=== PATIENT | male | born 1950 | race Caucasian/White ===

== ENCOUNTER 2020-06-22 16:35 | Emergency (ER) | payer MEDICARE ==
[~2020-06-22] VITALS: Ht 177.8 cm; Wt 143.2 kg
[2020-06-22 17:03] VITALS: BP 158/90
== END 2020-06-22 18:32 | disposition home or self-care (01) ==
LOC: ER 16:35
DX: S61.212A Laceration without foreign body of right middle finger without damage to nail, initial encounter (principal); I25.10 Atherosclerotic heart disease of native coronary artery without angina pectoris; Z88.8 Allergy status to other drugs, medicaments and biological substances; X58.XXXA Exposure to other specified factors, initial encounter; Y93.89 Activity, other specified; Y92.89 Other specified places as the place of occurrence of the external cause; Y99.8 Other external cause status
CPT/HCPCS: 12002; 99282

== ENCOUNTER 2024-07-19 08:34 | Outpatient (CLI) | payer MEDICARE, OTHER ==
[~2024-07-19 08:34] MED LIST: iohexol 300mg/ml 100ml inj. ONE; iohexol 350MG/ML 100ml bottle IV ONE
[2024-07-19] MEDS ORDERED: iohexol 300mg/ml 100ml inj. ONE (09:15)
--- NOTE | 2024-07-19 11:25 | RADIOLOGY REPORT ---
Procedure: CT CT CHEST W/ IV CONTRAST Reason for study/Clinical History: PRESENCE OF AORTOCORONARY BYPASS GRAFT Comparison Study: None Exam Date: 07/19/2024 09:30 AM TECHNIQUE: Multidetector CT of the chest was performed from the lung apices to the upper abdomen with out the use of intravenous contract. Axial, coronal and sagittal multiplanar reformats were performed . Radiation Dose Information: CT Dose: CTDI volume is 25 mGy. Dose-length product is 250 mGy*cm The dose indicators for CT are the volume Computed Tomography (CT) Dose Index (CTDIvol) and the Dose Length Product (DLP), and are measured in units of mGy and mGy-cm, respectively. These indicators are not patient dose, but values generated from the CT scanner acquisition factors. The report includes radiation exposure data for exposures received during this examination. FINDINGS: Lower neck: Normal thyroid. Lungs: No focal consolidation, pleural effusion or pneumothorax. Heart/Vascular Structures: Normal heart size. No pericardial effusion. Lymph Nodes: No adenopathy Pleura: No pleural effusion or significant pneumothorax. Musculoskeletal: Chronic deformity of the sternum. Soft tissues: Normal. Upper abdomen: Limited portions of the upper abdomen are unremarkable. IMPRESSION: No acute intrathoracic abnormality. 4.6cm ascending aortic aneurysm. Radiation optimization: All CT scans at this facility use at least one of these dose optimization pastor hniques: automated exposure control mA and/or kV adjustment per patient size (includes targeted exam s where dose is matched to clinical indication) or iterative reconstruction.
== END 2024-07-19 23:56 | disposition home or self-care (01) ==
LOC: RAD 08:34
PROVIDERS: ATTEND Nurse Practitioner Occupational Health
DX: I71.21 Aneurysm of the ascending aorta, without rupture (principal); Z95.1 Presence of aortocoronary bypass graft
CPT/HCPCS: 71260; Q9967